=== PATIENT | female | born 1960 | race Caucasian/White ===

== ENCOUNTER → 2017-07-20 | Outpatient (CLI) | payer SELFPAY ==
--- NOTE | 2017-07-21 10:03 | MM ---
Reason for exam: screening (asymptomatic). Last mammogram was performed 7 years and 11 months ago. History: Patient is postmenopausal. Reductions of both breasts, 2015. Physical Findings: A clinical breast exam by your physician is recommended on an annual basis and results should be correlated with mammographic findings. MG 3D Screening Mammo W/Cad Bilateral CC and MLO view(s) were taken. Prior study comparison: September 03, 2009, bilateral diagnostic digital mammog. April 13, 2007, mammogram, performed at [facility]. The breast tissue is heterogeneously dense. This may lower the sensitivity of mammography. Stable benign calcifications. There is no discrete abnormality. No significant changes when compared with prior studies. ASSESSMENT: Benign, BI-RAD 2 RECOMMENDATION: Routine screening mammogram of both breasts in 1 year.
--- NOTE | 2017-07-21 11:30 | BD ---
EXAMINATION TYPE: Axial Bone Density DATE OF EXAM: 07/20/2017 COMPARISON: NONE CLINICAL HISTORY: M85.80 disorder of bone Height: 66.8 Weight: 165.0 FRAX RISK QUESTIONS: Alcohol (3 or more units per day): no Family History (Parent hip fracture): no Glucocorticoids (More than 3mos): no (Ex: prednisone, prednisolone, methylprednisolone, dexamethasone, and hydrocortisone). History of Fracture in Adulthood: yes Secondary Osteoporosis: 1. Type 1 Diabetes: no 2. Hyperthyroidism: no 3. Menopause before 45: no 4. Malnutrition: no 5. Chronic liver disease: no Rheumatoid Arthritis: no Current Tobacco Use: no RISK FACTORS HISTORY OF: Hip Fracture (Right/Left): left hip When: 2014 Spine Fracture: l-spine 4 and 5 When: 2014 Surgery to Spine/Hip(right/left)/Wrist (right/left): left hip When: 2014 Family History of Osteoporosis: no Active: no Diet low in dairy products/other sources of calcium: yes Postmenopausal woman: hysterectomy 12 years ago Lost more than 2 inches in height since high school: just 2 inches Frequent falls: no MEDICATIONS: vit d, truelicty , diabetic meds Additional History: EXAM MEASUREMENTS: Bone mineral densitometry was performed using the [employer] System. Bone mineral density about the R hip (g/cm2): 0.704 T Score values are as follows: -----R Neck: -2.4 -----R Total: -2.1 Bone mineral density has: baseline Bone mineral density about the L Wrist (g/cm2): 0.321 T Score values are as follows: -----Dist. R+U: -3.2 -----Prox. R+U: -2.5 -----Radius total: -3.2 Bone mineral density has: baseline IMPRESSION: Osteopenia about the bilateral femora. Osteoporosis about the forearm. NOTE: T-SCORE=SD OF THE YOUNG ADULT MEAN.
== END | disposition home or self-care (01) ==
LOC: RADMAMWWP 14:39
PROVIDERS: ATTEND Family Medicine
DX: Z12.31 Encounter for screening mammogram for malignant neoplasm of breast (principal); M85.88 Other specified disorders of bone density and structure, other site
CPT/HCPCS: 77063; 77067; 77080; 77081

== ENCOUNTER → 2017-08-23 | Day surgery (SDC) | payer BC, OTHER ==
[2017-08-21 17:22] VITALS: BMI 25.4
[~2017-08-23] MED LIST: LACTATED RINGERS 1,000 ML IV SCH; LIDOCAINE 1% 20 ML VIAL (10MG/ML) FOR IV START INTRADERMA PRN; MIDAZOLAM 2 MG/2 ML VIAL IV PRN; PROPOFOL 10 MG/ML 20 ML VIAL IV ONE
--- NOTE | 2017-08-23 04:51 | P.GSHP ---
History of Present Illness H&P Date: 08/23/17 CHIEF COMPLAINT: Colon screen HISTORY OF PRESENT ILLNESS: The patient is a 57-year-old female who presents for colon screen. Lower endoscopy was offered for further evaluation and management. PAST MEDICAL HISTORY: Please see list. PAST SURGICAL HISTORY: Please see list. MEDICATIONS: Please see list. ALLERGIES: Please see list. SOCIAL HISTORY: No illicit drug use FAMILY HISTORY: No reports of Crohn disease or ulcerative colitis. REVIEW OF ORGAN SYSTEMS: CONSTITUTIONAL: No reports of fevers or chills. PHYSICAL EXAM: VITAL SIGNS: Stable GENERAL: Well-developed pleasant in no acute distress. HEENT: No scleral icterus. Extraocular movements grossly intact. Moist buccal mucosa. NECK: Supple without lymphadenopathy. CHEST: Unlabored respirations. Equal bilateral excursions. CARDIOVASCULAR: Regular rate and rhythm. Distal 2+ pulses. ABDOMEN: Soft, nontender, nondistended. MUSCULOSKELETAL: No clubbing, cyanosis, or edema. ASSESSMENT: 1. Colon screen. PLAN: 1. Recommend proceeding with a lower endoscopy Past Medical History Past Medical History: Diabetes Mellitus, GI Bleed, Hyperlipidemia, Hypertension Additional Past Medical History / Comment(s): GI BLEED 2009. PATIENT STATES "NON-COMPLIANT, HAVEN'T BEEN TAKING RX IN PAST 8 WEEKS." CTS RT WRIST, WEARING BRACE. History of Any Multi-Drug Resistant Organisms: None Reported Past Surgical History: Bariatric Surgery, Breast Surgery, Section, Cholecystectomy, Hysterectomy, Orthopedic Surgery Additional Past Surgical History / Comment(s): breast reduction, gastroplasty "stomach stapling" 1992. COLONOSCOPY, EGD. ORIF LT HIP. Past Anesthesia/Blood Transfusion Reactions: No Reported Reaction Smoking Status: Never smoker - Past Family History Father Family Medical History: Cancer Additional Family Medical History / Comment(s): bladder ca, [place], prostate ca, Mother Family Medical History: Cancer Additional Family Medical History / Comment(s): lung ca at 48, Brother(s) Family Medical History: Cancer, Deep Vein Thrombosis (DVT), Pulmonary Embolus Sister(s) Family Medical History: Cancer, Pulmonary Embolus Additional Family Medical History / Comment(s): OVARIAN CA Medications and Allergies Home Medications Medication Instructions Recorded Confirmed Type Ergocalciferol [Vitamin D2] 50,000 unit PO Q7D 08/21/17 08/21/17 History Allergies Allergy/AdvReac Type Severity Reaction Status Date / Time hydrocodone bitartrate AdvReac Itching Verified 01/19/15 05:01 [From [place]]
[2017-08-23 09:44] VITALS: RESP 16; TEMP 97
[2017-08-23 09:46] LABS: Glucose,Whole Blood 193 mg/dL (75-99)
--- NOTE | 2017-08-23 10:54 | P.PCN ---
Date of Procedure: 08/23/17 Description of Procedure: PREOPERATIVE DIAGNOSIS: Colonoscopy screening Family history of colon cancer Personal history of incomplete bowel prep. POSTOPERATIVE DIAGNOSIS: Colonoscopy screening Family history of colon cancer External hemorrhoids. OPERATION: Colonoscopy to the sigmoid colon. SURGEON: Jackie Grace MD. ANESTHESIA: MAC. INDICATIONS: The patient is a 57-year-old female who presents for colonic screening. She has family history of colon cancer. Benefits and risks were described and informed consent was obtained. DESCRIPTION OF PROCEDURE: The patient had undergone bowel prep. Se had been brought into the endoscopy room and laid in the left lateral decubitus position. After adequate intravenous sedation, the rectum was examined with 2% lidocaine jelly. External hemorrhoids were encountered. The rectal tone was within normal limits. No lesions were palpated in the rectal vault. The prostate was smooth without nodularity. An Olympus colonoscope was advanced along the rectum to a very tortuous sigmoid colon preventing any advancement of the scope beyond 30 cm despite switching the scope from adult colonoscope to a pediatric colonoscope. Despite maneuvers, the pediatric colonoscope could not advance beyond 30 cm of the sigmoid colon. The colon was desufflated. The patient tolerated the procedure well. FINDINGS: External prolapsed hemorrhoids, grade 3 Scope advanced to the sigmoid colon. RECOMMENDATIONS: Will need barium enema for completion of assessment of colon Repeat colonoscopy in 5 years or less due to family history Plan - Discharge Summary New Discharge Prescriptions: No Action Ergocalciferol [Vitamin D2] 50,000 unit PO Q7D Discharge Medication List Ergocalciferol [Vitamin D2] 50,000 unit PO Q7D 08/21/17 [History]
[2017-08-23 11:32] VITALS: BP 139/81; PULSE 81
--- NOTE | 2017-08-23 15:15 | FL ---
EXAMINATION TYPE: FL barium enema DATE OF EXAM: 08/23/2017 COMPARISON: NONE HISTORY: Incomplete colonoscopy TECHNIQUE: A double air contrast barium enema study is performed. FINDINGS: Cable Reeler view of the abdomen shows overall non-obstructive bowel gas pattern. Abundant bowel gas from the patient's recent colonoscopy attempt was evident within the ascending transverse and pro ximal descending colon. Contrast followed by air was refluxed to the colon to the cecum. The appendix is identified. No reflu x into the terminal ileum is evident. No persistent filling defects are evident. No suspicious circumferential area of narrowing is evident . Presacral space is unremarkable. The appendix is identified on the postevacuation 20 film. IMPRESSION: 1. No suspicious changes within the colon.
== END | disposition home or self-care (01) ==
LOC: ORWHC2ENDO 07:34
PROVIDERS: ATTEND Surgery Plastic and Reconstructive Surgery
DX: Z12.11 Encounter for screening for malignant neoplasm of colon (principal); Z80.0 Family history of malignant neoplasm of digestive organs; K64.2 Third degree hemorrhoids; Z98.84 Bariatric surgery status; K21.9 Gastro-esophageal reflux disease without esophagitis; E11.9 Type 2 diabetes mellitus without complications; E78.5 Hyperlipidemia, unspecified; I10 Essential (primary) hypertension
CPT/HCPCS: 74270; 45330; J2704

== ENCOUNTER 2020-10-01 10:21 | Emergency (ER) | payer OTHER ==
[2020-10-01 10:31] VITALS: BP 193/111; PULSE 90; RESP 18; TEMP 98
[2020-10-01] MEDS ORDERED: HYDROmorphone 1 MG/ML 1 ML SYRINGE IM STA (10:44)
--- NOTE | 2020-10-01 11:59 | CT ---
EXAMINATION TYPE: CT brain alice perkins DATE OF EXAM: 10/01/2020 COMPARISON: HISTORY: fall downstairs on Monday CT DLP: 1456.[address] of the brain was performed. The ventricles, basal cisterns and sulci overlying the cerebral convexities demonstrate mild enlargem ent. There is no evidence for intracranial hemorrhage or sulcal effacement. There is decreased attenuatio n about the periventricular white matter and deep white matter of both cerebral hemispheres, compatib le with chronic small vessel ischemia. No mass effects are seen. If symptoms persist consider MRI. Osseous calvarium is intact. IMPRESSION: 1. Age related atrophic and chronic small vessel ischemic change without acute intracranial process seen at this time. CT Cervical Spine: Unenhanced CT of the cervical spine was performed with bone and soft tissue window settings submitted . Coronal and sagittal reconstruction is obtained. There is normal alignment and prevertebral soft tissues. No evidence for acute cervical fracture . Scattered degenerative disc disease and spondylosis. Biapical scarring. IMPRESSION: 1. No evidence for acute fracture or subluxation of the cervical spine.
--- NOTE | 2020-10-01 12:46 | ED ---
Fall HPI - General Chief Complaint: Fall Stated Complaint: Fall/Lt Side Pain Time Seen by Provider: 10/01/20 10:35 Source: patient, RN notes reviewed Mode of arrival: ambulatory - History of Present Illness Initial Comments: 60-year-old female that presents to emergency department 3 day status post fall down several stairs. She noted that she had left shoulder left hip left foot left thigh and neck pain. She noted that she felt about each day. Visual normal limits once. She noted she tried resting at home but came in today as it was not getting any better. She wanted to evaluate for any potential fractures. She was well-appearing 60-year-old female ago. She was in no apparent Distress while sitting in bed during exam and interview. He denied any chest pain short ness of breath headache nausea vomiting diarrhea constipation fever fatigue chills. - Related Data Home Medications Medication Instructions Recorded Confirmed Atorvastatin [Lipitor] 10 mg PO HS 10/01/20 10/01/20 Dulaglutide [Trulicity] 1.5 mg SQ WE 10/01/20 10/01/20 FLUoxetine HCL [PROzac] 40 mg PO DAILY 10/01/20 10/01/20 lisinopriL 10 mg PO DAILY 10/01/20 10/01/20 Allergies Allergy/AdvReac Type Severity Reaction Status Date / Time hydrocodone bitartrate AdvReac Itching Verified 10/01/20 12:05 [From [place]] Review of Systems ROS Statement: Those systems with pertinent positive or pertinent negative responses have been documented in the HPI. ROS Other: All systems not noted in ROS Statement are negative. Past Medical History Past Medical History: Diabetes Mellitus, Hypertension History of Any Multi-Drug Resistant Organisms: None Reported Past Surgical History: Section, Cholecystectomy, Hysterectomy Additional Past Surgical History / Comment(s): breast reduction, gastroplasty "stomach stapling" 20 years ago Past Anesthesia/Blood Transfusion Reactions: No Reported Reaction Past Psychological History: No Psychological Hx Reported Smoking Status: Never smoker Past Alcohol Use History: Rare Past Drug Use History: None Reported - Past Family History Father Family Medical History: Cancer Additional Family Medical History / Comment(s): bladder ca, [place], prostate ca, Mother Family Medical History: Cancer Additional Family Medical History / Comment(s): lung ca at 48, Brother(s) Family Medical History: Cancer, Deep Vein Thrombosis (DVT), Pulmonary Embolus Sister(s) Family Medical History: Cancer, Pulmonary Embolus Additional Family Medical History / Comment(s): OVARIAN CA General Exam Limitations: no limitations General appearance: alert, in no apparent distress Head exam: Present: atraumatic, normocephalic, normal inspection Eye exam: Present: normal appearance, PERRL, EOMI. Absent: scleral icterus, conjunctival injection, periorbital swelling Neck exam: Present: normal inspection, other (C-collar in place upon initial examination.) Respiratory exam: Present: normal lung sounds bilaterally. Absent: respiratory distress, wheezes, rales, rhonchi, stridor Cardiovascular Exam: Present: regular rate, normal rhythm, normal heart sounds. Absent: systolic murmur, diastolic murmur, rubs, gallop, clicks Extremities exam: Present: normal inspection, full ROM, normal capillary refill, other (Minimal left foot tenderness on the medial aspect.). Absent: tenderness, pedal edema, joint swelling, calf tenderness Neurological exam: Present: alert, oriented X3 Psychiatric exam: Present: normal affect, normal mood Skin exam: Present: warm, dry, intact, normal color. Absent: rash Course Vital Signs 10/01/20 10:27 Temperature 98 F Pulse Rate 90 Respiratory 18 Rate Blood Pressure 193/111 O2 Sat by Pulse 98 Oximetry Medical Decision Making - Medical Decision Making 60-year-old female complaining of several left-sided areas of pain after falling on stairs 3 days ago. X-ray of the left hip, femur, shoulder, foot ordered. CT of the brain and C-spine ordered. 1 mg of Dilaudid ordered. X-ray imaging shows possible T10 compression fracture of age undetermined. Patient does not have pain over T10 follow-up with health plan specialist. Rest of imaging negative. Case discussed with Dr. Mercer, patient can discharge home with follow-up health plan specialist. - Radiology Data Radiology results: report reviewed, image reviewed CT of the brain and C-spine: Age-related atrophic and chronic small vessel ischemic changes without acute intracranial process seen at this time. No evidence for acute fracture or subluxation of the cervical spine. Thoracic spine x-ray: Anterior wedge compression deformity at T10 suspected of indeterminate age. Thoracic MRI or possibly bone scan could be performed for better evaluation to assess for acuity. Left hip and left femur x-ray: No acute fracture dislocation. Left foot x-ray: No acute fracture dislocation. Disposition Clinical Impression: Fall, Thoracic back pain, Left foot pain, Left hip pain, Neck pain Disposition: HOME SELF-CARE Condition: Stable Instructions (If sedation given, give patient instructions): Fall Prevention for Older Adults (ED) Additional Instructions: Please return to the Emergency Department if symptoms worsen or any other concerns. Follow-up with orthopedist in the next several days. Follow-up with primary care as needed. Rest ice compress elevate. Take Tylenol and Motrin as needed for pain. Is patient prescribed a controlled substance at d/c from ED?: No Referrals: Yolanda Lucas DO [Primary Care Provider] - 1-2 days Scar Huff DO [Doctor of Osteopathic Medicine] - 1-2 days Time of Disposition: 14:11
--- NOTE | 2020-10-01 13:19 | XR ---
EXAMINATION TYPE: XR shoulder complete LT DATE OF EXAM: 10/01/2020 CLINICAL HISTORY: pain COMPARISON: NONE TECHNIQUE: Three views of the left shoulder are obtained. FINDINGS: There is no acute fracture/dislocation evident. The acromioclavicular and glenohumeral yamila int spaces appear moderately narrowed. Calcific tendinopathy noted. The visualized ribs are intact a nd unremarkable. IMPRESSION: 1. There is no acute fracture or dislocation. ICD 10 NO FRACTURE, INITIAL EVALUATION
--- NOTE | 2020-10-01 13:22 | XR ---
EXAMINATION TYPE: XR foot complete LT DATE OF EXAM: 10/01/2020 CLINICAL HISTORY: pain TECHNIQUE: Frontal, lateral and oblique images of the left foot are obtained. COMPARISON: None. FINDINGS: There is no acute fracture/dislocation evident. The joint spaces appear within normal melara its. The overlying soft tissue appears unremarkable. IMPRESSION: There is no acute fracture or dislocation. ICD 10 NO FRACTURE, INITIAL EVALUATION
--- NOTE | 2020-10-01 13:28 | XR ---
Pelvis and left hip, left femur HISTORY: Trauma and pain Frontal view of the pelvis and 2 views of left hip submitted on 4 images, frontal lateral view of the left femur on 4 images No comparisons Bone mineralization is reduced. There are atherosclerotic vascular calcifications noted incidentally along the lower extremity, vascular calcifications are present within the pelvis. Patient is status p ost open reduction internal fixation at the level of the proximal left femur. Alignment is maintained . Concentric joint space loss in the left hip may be indicative of underlying acetabular femoral impi ngement. Joint space loss also noted in the left knee. IMPRESSION: No acute fracture or dislocation. Osteopenia and postop changes.
--- NOTE | 2020-10-01 13:30 | XR ---
Thoracic spine HISTORY: Trauma and pain Frontal lateral views of the thoracic spine submitted on 3 images Bone mineralization is reduced. Thoracic vertebral bodies show preserved height with the exception of some loss of height T10 anteriorly, mild anterior wedging. No definite retropulsion. There is multil evel spondylosis. Loss of disc height present at intervertebral levels. No evident paraspinal mass. S urgical clips and maida present in the upper abdomen. There is a slight spinal curvature. Atheroscl erotic vascular calcifications are noted incidentally. IMPRESSION: Anterior wedge compression deformity at T10 suspected of indeterminate age. Thoracic MRI or possibly bone scan could be performed for better evaluation to assess for acuity. There is osteope farideh, underlying degenerative disc disease.
== END 2020-10-01 14:34 | disposition home or self-care (01) ==
LOC: EC 10:21
DX: M54.2 Cervicalgia (principal); M54.6 Pain in thoracic spine; M79.672 Pain in left foot; M25.552 Pain in left hip; E11.9 Type 2 diabetes mellitus without complications; I10 Essential (primary) hypertension; Z79.84 Long term (current) use of oral hypoglycemic drugs; Z79.899 Other long term (current) drug therapy; Z80.1 Family history of malignant neoplasm of trachea, bronchus and lung; Z82.49 Family history of ischemic heart disease and other diseases of the circulatory system; Z88.5 Allergy status to narcotic agent; W10.9XXA Fall (on) (from) unspecified stairs and steps, initial encounter
CPT/HCPCS: 72070; 73030; 73502; 73552; 73630; 72125; 70450; 96372; 99284; J1170

== ENCOUNTER → 2021-04-08 | Outpatient (CLI) | payer OTHER ==
--- NOTE | 2021-04-08 13:49 | NM ---
EXAMINATION TYPE: NM bone scan whole body DATE OF EXAM: 04/08/2021 COMPARISON: Plain film from outside institution 03/31/2021 HISTORY: M54.16 S32.040A M54.6 S32.020A S22.050A S22.070A Delayed whole-body scanning was performed following the injection of 22.7 mCi Tc 99m MDP. Images acq uired 3 hours post injection. FINDINGS: Soft tissue uptake is within normal limits. There is a bandlike area of increased pharmaceutical upta ke which correlates to the thoracic compression fracture seen on plain film at the midthoracic spine proximately T6 level consistent with subacute osteoporotic compression fracture. Additional compressi on fractures do not show significant associated uptake. There is a spinal curvature in the lumbar spi ne. Uptake within the wrists, shoulders, feet, sternoclavicular joints is likely degenerative. Uptake in the maxilla and mandible is likely due to periodontal disease. IMPRESSION: Osteoporotic compression fracture is subacute in the midthoracic spine. Degenerative changes as descr ibed. Additional chronic osteoporotic compression fractures the lumbar spine in thoracic spine do not show associated uptake on bone scan.
== END | disposition home or self-care (01) ==
LOC: RADNMMAIN 09:29
PROVIDERS: ATTEND Physical Medicine & Rehabilitation
DX: M80.88XA Other osteoporosis with current pathological fracture, vertebra(e), initial encounter for fracture (principal); M43.8X6 Other specified deforming dorsopathies, lumbar region
CPT/HCPCS: 78306; A9503

== ENCOUNTER → 2023-01-16 | Outpatient (CLI) | payer OTHER ==
--- NOTE | 2023-01-16 15:36 | US ---
EXAMINATION TYPE: US venous doppler duplex LE LT DATE OF EXAM: 01/16/2023 3:08 PM COMPARISON: NONE CLINICAL INDICATION: Female, 62 years old with history of I80.9 PHLEBITIS AND THROMBOPHLEBITIS; Left leg swelling SIDE PERFORMED: Left TECHNIQUE: The lower extremity deep venous system is examined utilizing real time linear array sonog yue with graded compression, doppler sonography and color-flow sonography. VESSELS IMAGED: Common Femoral Vein Deep Femoral Vein Greater Saphenous Vein * Femoral Vein Popliteal Vein Small Saphenous Vein * Proximal Calf Veins (* superficial vessels) Left Leg: Appears negative for DVT IMPRESSION: Grayscale, color doppler, spectral doppler imaging performed of the deep veins of the lo wer extremities. There is normal flow, compressibility, vascular waveforms.
== END | disposition home or self-care (01) ==
LOC: RADUSWWP 14:36
PROVIDERS: ATTEND Orthopaedic Surgery
DX: I80.9 Phlebitis and thrombophlebitis of unspecified site (principal)

== ENCOUNTER 2023-11-30 06:35 | Day surgery (SDC) | payer OTHER ==
[2023-11-29 09:14] VITALS: BMI 24.9
[2023-11-30 07:30] LABS: Glucose,Whole Blood 124 mg/dL (70-110)
[2023-11-30] MEDS ORDERED: LIDOCAINE 1% INJ 10MG/ML (20 ML MDV) ONE (07:31)
[2023-11-30] MEDS ORDERED: PROPOFOL 10 MG/ML 20 ML VIAL IV ONE (07:31)
[2023-11-30] MEDS: SODIUM CHLORIDE 0.9% 500 ML 500 ML IV ONE (07:31)
[2023-11-30 07:34] VITALS: TEMP 96.8
--- NOTE | 2023-11-30 07:37 | P.GSHP ---
History of Present Illness H&P Date: 11/30/23 CHIEF COMPLAINT: GERD and colon screen HISTORY OF PRESENT ILLNESS: The patient is a 63-year-old female who is a renal transplant candidate required: Screening. She also reports severe gastroesophageal reflux disease and controlled with medications for over 6 months to a year. She also reports dysphagia. She is end-stage renal disease on dialysis. She presents for colon screening including upper endoscopy. PAST MEDICAL HISTORY: Please see list. PAST SURGICAL HISTORY: Please see list. MEDICATIONS: Please see list. ALLERGIES: Please see list. SOCIAL HISTORY: No illicit drug use FAMILY HISTORY: No reports of Crohn disease or ulcerative colitis. REVIEW OF ORGAN SYSTEMS: CONSTITUTIONAL: No reports of fevers or chills. GI: Denies any blood in stools or constipation. PHYSICAL EXAM: VITAL SIGNS: Stable GENERAL: Well-developed pleasant in no acute distress. HEENT: No scleral icterus. Extraocular movements grossly intact. Moist buccal mucosa. NECK: Supple without lymphadenopathy. CHEST: Unlabored respirations. Equal bilateral excursions. CARDIOVASCULAR: Regular rate and rhythm. Distal 2+ pulses. ABDOMEN: Soft, nondistended. MUSCULOSKELETAL: No clubbing, cyanosis, or edema. ASSESSMENT: 1. Gastroesophageal reflux disease 2. Colon screen. 3. Transplant candidate 4. End-stage renal disease dialysis dependent 5. Dysphagia PLAN: 1. Recommend proceeding with an upper and lower endoscopy 2. Records to be sent to transplant center per patient request Past Medical History Past Medical History: Diabetes Mellitus, Dialysis, Hyperlipidemia, Hypertension, Renal Disease Additional Past Medical History / Comment(s): HEMODIALYSIS-MON/MON/MON-END STAGE KIDNEY DISEASE, TRYING TO GET ON TRANSPLANT LIST, CURRENTLY DIET CONTROLLED DIABETES History of Any Multi-Drug Resistant Organisms: None Reported Past Surgical History: Bariatric Surgery, Breast Surgery, Section, Cholecystectomy, Hysterectomy, Orthopedic Surgery Additional Past Surgical History / Comment(s): breast reduction, gastroplasty "stomach stapling" 20 years ago COLONOSCOPY. EGD, DIALYSIS PORT UPPER RT ARM, ORIF LT HIP-PLATES/SCREWS, Past Anesthesia/Blood Transfusion Reactions: No Reported Reaction Smoking Status: Never smoker - Past Family History Father Family Medical History: Cancer Additional Family Medical History / Comment(s): bladder ca, [place], prostate ca, Mother Family Medical History: Cancer Additional Family Medical History / Comment(s): lung ca at 48, Brother(s) Family Medical History: Cancer, Deep Vein Thrombosis (DVT), Pulmonary Embolus Sister(s) Family Medical History: Cancer, Pulmonary Embolus Additional Family Medical History / Comment(s): OVARIAN CA Medications and Allergies Home Medications Medication Instructions Recorded Confirmed Type FLUoxetine HCL [PROzac] 40 mg PO DAILY 10/01/20 11/29/23 History Amitriptyline HCl [Elavil] 25 mg PO HS 11/29/23 11/29/23 History Atorvastatin [Lipitor] 40 mg PO HS 11/29/23 11/29/23 History Ergocalciferol [Vitamin D2 (1250 1,250 mcg PO WE 11/29/23 11/29/23 History Mcg = 23770 Iu)] Furosemide [Lasix] 40 mg PO DAILY 11/29/23 11/29/23 History Gabapentin [Neurontin] 100 mg PO HS 11/29/23 11/29/23 History carvediloL [Coreg] 12.5 mg PO DAILY 11/29/23 11/29/23 History hydrALAZINE HCL [Apresoline] 100 mg PO TID PRN 11/29/23 11/29/23 History Allergies Allergy/AdvReac Type Severity Reaction Status Date / Time hydrocodone bitartrate AdvReac Itching Verified 11/30/23 07:03 [From [place]] Surgical - Exam Vital Signs Temp Pulse Resp BP Pulse Ox 96.8 F L 77 16 172/75 98 11/30/23 07:15 11/30/23 07:15 11/30/23 07:15 11/30/23 07:15 11/30/23 07:15 Results - Labs Abnormal Lab Results - Last 24 Hours (Table) 11/30/23 Range/Units 07:27 POC Glucose (mg/dL) 124 H (70-110) mg/dL
--- NOTE | 2023-11-30 07:53 | P.PCN ---
Date of Procedure: 11/30/23 Description of Procedure: PREOPERATIVE DIAGNOSIS: Dysphagia Gastroesophageal reflux disease Transplant candidate, renal End-stage renal disease, dialysis dependent POSTOPERATIVE DIAGNOSIS: Gastroesophageal reflux disease with erosive esophagitis Diaphragmatic hiatal hernia, type II Gastric diverticulum Gastritis acute with bleeding Acute gastric ulcer with bleeding OPERATION: Esophagogastroduodenoscopy with biopsies along esophagus, antrum and duodenum SURGEON: Jackie Grace MD ANESTHESIA: MAC. INDICATIONS: The patient is a 63-year-old female who presents with dysphagia and reflux disease. Benefits and risks of the procedure were described. Informed consent was obtained. DESCRIPTION: The patient was brought into the endoscopy suite and laid in the left lateral decubitus position. An Olympus gastroscope was passed along the posterior oropharynx down to the distal esophagus where the squamocolumnar junction was encountered at 35 cm from the incisors. The stomach was entered and no bile reflux was found. Additional findings are listed below. Biopsies with cold forceps were obtained of the antrum. The first through third portion of the duodenum was examined. Retroflexion of the scope confirmed Hill grade 2 lower esophageal valve. The squamocolumnar junction demonstrated LA grade C erosive esophagitis. The stomach was desufflated. The patient tolerated the procedure well. FINDINGS: Squamocolumnar junction 35 cm from the incisors. Diaphragmatic hiatus at 45 cm. Hiatal hernia, 10 cm, type II Gastric diverticulum at fundus Hill grade 2 lower esophageal valve. LA grade C biopsies obtained erosive esophagitis. Biopsies obtained of the duodenum. Acute gastritis with with bleeding and biopsies obtained. Acute gastric ulcer, 2 mm punctate in antrum, biopsies obtained RECOMMENDATIONS: Recommend repair of paraesophageal hiatal hernia Recommend swallow study
[2023-11-30 08:37] VITALS: BP 159/75; PULSE 79; RESP 16
--- NOTE | 2023-12-19 17:19 | P.PCN ---
Date of Procedure: 11/30/23 Description of Procedure: PREOPERATIVE DIAGNOSIS: Family history of colon polyps Colonoscopy screening. POSTOPERATIVE DIAGNOSIS: Colonoscopy screening. OPERATION: Colonoscopy to the cecum, ileocecal valve and appendiceal orifice. SURGEON: Jackie Grace MD. ANESTHESIA: MAC. INDICATIONS: The patient is a 63-year-old female who presents for colonoscopy screening. Benefits and risks were described and informed consent was obtained. DESCRIPTION OF PROCEDURE: The patient had undergone Golyetely prep. The patient had been brought into the operating room and laid in the left lateral decubitus position. After adequate intravenous sedation, the rectum was examined with 2% lidocaine jelly. No exte rnal hemorrhoids were encountered. The rectal tone was within normal limits. No lesions were palpated in the rectal vault. An Olympus colonoscope was advanced until the cecum, ileocecal valve and appendiceal orifice were clearly viewed. The prep was excellent. No scattered diverticulosis was encountered. No colonic polyps were found. No evidence of focal colitis was found. Retroflexion of the scope demonstrated grade 1 internal hemorrhoids without active bleeding or inflammation. The colon was desufflated. The patient had tolerated the procedure well. Withdrawal time was over 6 minutes. FINDINGS: Aronchick preparation quality scale 1(1-5) Internal hemorrhoids, grade 1 No external prolapsed hemorrhoids. No arteriovenous malformations. No adenomatous polyps. No focal colitis. No scattered diverticulosis RECOMMENDATIONS: Lower endoscopy 5 years, 2028, due to family history of colon polyps Plan - Discharge Summary Discharge Rx Participant: No New Discharge Prescriptions: New Omeprazole [PriLOSEC] 40 mg PO DAILY #14 cap Continue FLUoxetine HCL [PROzac] 40 mg PO DAILY Ergocalciferol [Vitamin D2 (1250 Mcg = 97954 Iu)] 1,250 mcg PO WE Atorvastatin [Lipitor] 40 mg PO HS Amitriptyline HCl [Elavil] 25 mg PO HS carvediloL [Coreg] 12.5 mg PO DAILY Gabapentin [Neurontin] 100 mg PO HS Furosemide [Lasix] 40 mg PO DAILY hydrALAZINE HCL [Apresoline] 100 mg PO TID PRN PRN Reason: B/P > 120/70 Discharge Medication List FLUoxetine HCL [PROzac] 40 mg PO DAILY 10/01/20 [History] Amitriptyline HCl [Elavil] 25 mg PO HS 11/29/23 [History] Atorvastatin [Lipitor] 40 mg PO HS 11/29/23 [History] Ergocalciferol [Vitamin D2 (1250 Mcg = 56949 Iu)] 1,250 mcg PO WE 11/29/23 [History] Furosemide [Lasix] 40 mg PO DAILY 11/29/23 [History] Gabapentin [Neurontin] 100 mg PO HS 11/29/23 [History] carvediloL [Coreg] 12.5 mg PO DAILY 11/29/23 [History] hydrALAZINE HCL [Apresoline] 100 mg PO TID PRN 11/29/23 [History] Omeprazole [PriLOSEC] 40 mg PO DAILY #14 cap 11/30/23 [Rx] Follow up Appointment(s)/Referral(s): Jackie Grace MD [STAFF PHYSICIAN] - As Needed Patient Instructions/Handouts: *Surgery [facility] - (Anesthesia) Discharge Instructions Outpatient Surgery, Peptic Ulcer (DC), Hiatal Hernia (DC), Colonoscopy (DC), Upper Endoscopy (DC) Activity/Diet/Wound Care/Special Instructions: Repeat colonoscopy 10 years, 2033 Discharge Disposition: HOME SELF-CARE
== END 2023-11-30 09:21 | disposition home or self-care (01) ==
LOC: ORWHC2ENDO 06:35
PROVIDERS: ATTEND Surgery Plastic and Reconstructive Surgery
DX: Z12.11 Encounter for screening for malignant neoplasm of colon (principal); R13.10 Dysphagia, unspecified; K21.00 Gastro-esophageal reflux disease with esophagitis, without bleeding; K64.0 First degree hemorrhoids; Z83.719 Family history of colon polyps, unspecified; K31.4 Gastric diverticulum; K29.01 Acute gastritis with bleeding; Z94.0 Kidney transplant status; Z80.1 Family history of malignant neoplasm of trachea, bronchus and lung; E78.5 Hyperlipidemia, unspecified; I10 Essential (primary) hypertension; Z88.5 Allergy status to narcotic agent
CPT/HCPCS: 88305; 84132; 43239; J2001; J2704; G0105; 45378

== ENCOUNTER → 2024-08-28 | Outpatient (CLI) | payer OTHER ==
[2024-08-28 14:26] LABS: INR 0.9 (<1.2); Partial Thromboplastin Time 24.2 sec (22.0-30.0); Prothrombin Time 10.3 sec (10.0-12.5)
[2024-08-28 18:12] LABS: HCT 39.8 % (37.2-46.3); HGB 12.9 g/dL (12.0-15.0); MCH 31.1 pg (27.0-32.0); MCHC 32.4 g/dL (32.0-37.0); MCV 95.9 FL (80.0-97.0); Mean Platelet Volume 9.8 FL (9.5-12.2); NRBC Per 100 WBC 0 X 10*3/uL (0.00-0.01); Platelet Count 116 X 10*3/uL (140-440); RBC 4.15 X 10*6/uL (4.10-5.20); RDW 13.3 % (11.5-14.5)
[2024-08-28 19:57] LABS: Prealbumin 19.7 mg/dL (18.0-42.0)
[2024-08-28 20:30] LABS: % Iron Saturation 46.38 (12.00-45.00); ALT 20 U/L (8-44); AST 37 U/L (13-35); Albumin 4.1 g/dL (3.8-4.9); Albumin/Globulin Ratio 1.64 Ratio (1.60-3.17); Alkaline Phosphatase 167 U/L (41-126); BUN/Creat Ratio 4.87 Ratio (12.00-20.00); Blood Urea Nitrogen 14.6 mg/dL (9.0-27.0); Calcium 9.9 mg/dL (8.7-10.3); Carbon Dioxide 32.1 mmol/L (21.6-31.8); Chloride 98 mmol/L (96-109); Chol/HDL Ratio 5.49 Ratio; Globulin 2.5 g/dL (1.6-3.3); Glucose 119 mg/dL (70-110); Iron 128 UG/DL (50-170); Magnesium 2.3 mg/dL (1.5-2.4); Phosphorus 2.4 mg/dL (2.4-5.1); Potassium 4.3 mmol/L (3.5-5.5); Sodium 142 mmol/L (135-145); Total Bilirubin 0.5 mg/dL (0.3-1.2); Total Iron Binding Capacity 276 UG/DL (228-460); Total Protein 6.6 g/dL (6.2-8.2)
[2024-08-29 10:30] LABS: Zinc, Serum 66 ug/dL (60-130)
[2024-08-30 05:58] LABS: Vitamin A 45 ug/dL (38-106)
[2024-08-30 06:12] LABS: Vit B1(Thiamine) 58 ug/L (38-122)
== END | disposition home or self-care (01) ==
LOC: LABWHC1 13:41
PROVIDERS: ATTEND Surgery Plastic and Reconstructive Surgery
DX: D50.8 Other iron deficiency anemias (principal); K91.2 Postsurgical malabsorption, not elsewhere classified; E44.1 Mild protein-calorie malnutrition; E55.9 Vitamin D deficiency, unspecified; K74.1 Hepatic sclerosis; N19 Unspecified kidney failure; K50.90 Crohn's disease, unspecified, without complications; T56.894A Toxic effect of other metals, undetermined, initial encounter
CPT/HCPCS: 36415; 80053; 80061; 82306; 82525; 82607; 82728; 82746; 83036; 83540; 83550; 83721; 83735; 83970; 84100; 84134; 84255; 84425; 84443; 84590; 84630; 85027; 85610; 85730